=== PATIENT | male | born 1985 | race Two or more races ===

== ENCOUNTER → 2024-11-22 | Outpatient (CLI) | payer OTHER | LOC: M PLARAD 14:10 | PROVIDERS: ATTEND Physician Assistant Medical | DX: M50.11 Cervical disc disorder with radiculopathy, high cervical region (principal); M50.121 Cervical disc disorder at C4-C5 level with radiculopathy; M47.12 Other spondylosis with myelopathy, cervical region ==

== ENCOUNTER → 2025-05-30 | Day surgery (SDC) | payer OTHER ==
[~2025-05-30] VITALS: Ht 175.3 cm; Wt 61.2 kg
[~2025-05-30] MED LIST: ADDE10CA3 PO; D 10CAP PO
[2025-05-30 07:12] VITALS: BP 112/78; TEMP 98.4; O2SAT 98
== END | disposition home or self-care (01) ==
LOC: M OPP 06:59
PROVIDERS: ATTEND Surgery
DX: Z53.09 Procedure and treatment not carried out because of other contraindication (principal); K92.1 Melena